=== PATIENT | male | born 1985 | race Caucasian/White ===

== ENCOUNTER 2016-11-28 05:31 | Day surgery (SDC) | payer OTHER ==
[2016-11-24 15:23] VITALS: BMI 31.9
[~2016-11-28 05:31] MED LIST: LEVOFLOXACIN 500 MG PREMIX BAG IVPB ONE
[2016-11-28] MEDS ORDERED: LEVOFLOXACIN 500 MG IVPB 100 ML IVPB ONE (12:37)
[2016-11-28] MEDS ORDERED: MIDAZOLAM HCL 2 MG/2 ML SINGLE DOSE VIAL ONE ×2 (12:42)
[2016-11-28] MEDS ORDERED: LEVOFLOXACIN 500 MG PREMIX BAG IVPB ONE (12:45)
[2016-11-28] MEDS ORDERED: DEXAMETHASONE SOD PHOSPHATE 4 MG/1 ML VIAL ONE (12:49)
[2016-11-28] MEDS ORDERED: KETOROLAC TROMETHAMINE 30 MG/1 ML VIAL ONE (12:49)
[2016-11-28] MEDS ORDERED: ONDANSETRON 4 MG/2 ML VIAL IVPUSH PRN (13:13)
[2016-11-28] MEDS ORDERED: oxyCODONE HCL 5 MG TABLET PO PRN (13:13)
[2016-11-28] MEDS ORDERED: LACTATED RINGERS SOLUTION 1,000 ML IV SCH (13:15)
--- NOTE | 2016-11-28 13:17 | OP ---
Operative Note - Note: Operative Date: 11/28/16 Pre-Operative Diagnosis: right renal stone Operation: right eswl Findings: 7mm right upper pole renal stone Post-Operative Diagnosis: Same as Pre-op Surgeon: Ambrocio Ritchie Anesthesia: General Operative Report Dictated: Yes
[2016-11-28 14:13] VITALS: TEMP 98.2
[2016-11-28 15:18] VITALS: BP 134/90; PULSE 74
--- NOTE | 2016-11-28 20:55 | OP ---
DATE OF OPERATION: 11/28/2016 PREOPERATIVE DIAGNOSIS: Right renal stone. POSTOPERATIVE DIAGNOSIS: Right renal stone. PROCEDURE: Right extracorporeal shock wave lithotripsy. ATTENDING SURGEON: Patricia Ritchie M.D. ANESTHESIA: General. OPERATION: Patient was brought in the operating room, placed in a supine position on the operating room table. Ultrasonography and fluoroscopy were performed. A 7-mm upper pole renal stone was identified. General anesthesia and intravenous antibiotics were then administered. At this point, extracorporeal shock wave lithotripsy was commenced utilizing ultrasonography and fluoroscopy. 3000 impulses at 17 joules of power were administered to the stone with excellent fragmentation. No complications were noted. DISPOSITION: Disposition of the patient to the recovery room. PATRICIA LEE M.D. [id number]
== END 2016-11-28 15:18 | disposition home or self-care (01) ==
LOC: JASU-SURG 05:31
PROVIDERS: ATTEND Urology
PROC: 0TF3XZZ Fragmentation in Right Kidney Pelvis, External Approach (ICD-10-PCS; principal; 2016-11-28 11:45)
DX: N20.0 Calculus of kidney (principal)
CPT/HCPCS: 94760